=== PATIENT | female | born 1985 | race Caucasian/White ===

== ENCOUNTER → 2021-03-07 | Outpatient (CLI) | payer BC ==
--- NOTE | 2021-03-07 08:41 | RAD ---
INDICATION: Reason: DYSMENORRHEA, ABNORMAL PAP / Spl. Instructions: / History: COMPARISON: None. TECHNIQUE: Grayscale and color ultrasound images uterus and adnexa. Transabdominal and transvaginal images obtained. Transvaginal images were needed to better visualize structures that were limited on transabdominal imaging. FINDINGS: Uterus: 69 x 50 x 40 mm. 10 mm hypoechoic region within the endometrial stripe. Endometrial stripe measures up to about 10 mm. Right Ovary: 31 x 24 x 23 mm. Left Ovary: 32 x 20 x 18 mm. Vascular flow identified to bilateral ovaries. Moderate free fluid. Nabothian cyst formation. 13 mm hypoechoic lesion right ovary. IMPRESSION: * Hypoechoic region within the endometrial stripe. Differential considerations would include causes such as polyp within the region as well as blood products. Higher grade neoplastic causes would be l ess common but follow-up could be obtained to ensure that this appropriately decreases to exclude denis plastic causes. Alternatively MRI could further assess. * Free fluid in the pelvis. * Nabothian cysts. * Hypoechoic lesion of the left ovary. Nonspecific appearance with some possible causes including co mplex nabothian cyst, hemorrhagic cyst or endometrioma. This differential assumes that the patient sena s a negative hCG. Electronically signed by: Maurizio Stone MD (03/07/2021 8:38 AM) [id number]
== END ==
LOC: US 07:44
PROVIDERS: ATTEND Family Medicine
DX: N88.8 Other specified noninflammatory disorders of cervix uteri (principal); N83.8 Other noninflammatory disorders of ovary, fallopian tube and broad ligament
CPT/HCPCS: 76830; 76856